=== PATIENT | female | born 1965 | race Caucasian/White ===

== ENCOUNTER 2017-02-27 18:33 | Emergency (ER) | payer MEDICARE, OTHER ==
[2017-02-27 18:49] VITALS: BP 141/99
[2017-02-27] MEDS ORDERED: Sodium Chloride 0.9% 10 ML Syringe FLUSH PRN (19:39)
[2017-02-27] MEDS ORDERED: fentaNYL 100 MCG/2 ML SDV IVPUSH ONE (19:39)
[2017-02-27] MEDS ORDERED: Sodium Chloride 0.9% 1,000 ML IV ONE (19:39)
--- NOTE | 2017-02-27 19:51 | EDM.PDOC ---
ED HPI GENERAL MEDICAL PROBLEM - General Chief Complaint: Respiratory Problem Stated Complaint: SOB Time Seen by Provider: 02/27/17 19:27 Source of Information: Reports: Patient History Limitations: Reports: No Limitations - History of Present Illness INITIAL COMMENTS - FREE TEXT/NARRATIVE: Patient is a 51-year-old female who presents to the ED complaining of increased weakness, shortness of breath, poor appetite, mild chest tightness, nausea, and increasing pain to her hips, tailbone, neck, and knees. Patient states this started 3 days ago with increasing difficulty to walk today. States she is normally on a fentanyl patch but ran out of this prescription on February 25. Prescription cant be filled until March 03, 2017. She has been taking hydrocodone with minimal relief. She did fall on her right hip yesterday but denies any injuries or worsening pain. She's been under long-term chronic pain therapy for quite some time. States with increasing pain her appetite has been poor. Her last meal was yesterday. She's had no diarrhea or vomiting. Chest tightness is described as a squeezing sensation, localized, with no known provocation. She has no pain with admission to the ED. She did get mildly dizzy with chest tightness. She's had symptoms in the past with stopping the fentanyl patch. She denies any syncopal episode, diaphoresis, numbness or tingling, pain with urination, abdominal pain, increased swelling to her lower extremities, calf pain, or any additional symptoms. Hip Pain Score (Numeric/FACES): 8 - Related Data Allergies Allergy/AdvReac Type Severity Reaction Status Date / Time No Known Allergies Allergy Verified 02/27/17 18:48 Home Meds: Home Meds Calcium Citrate 1 tab PO TID 02/27/17 [History] Ergocalciferol (Vitamin D2) [Vitamin D2] 1 tab PO WEEKLY 02/27/17 [History] Folic Acid 1 tab PO DAILY 02/27/17 [History] Gabapentin [Neurontin] 300 mg PO QID 02/27/17 [History] Hydrocodone/Acetaminophen [Hydrocodon-Acetaminoph 7.5-325] 1 tab PO TID PRN 09/14 [History] Levothyroxine Sodium [Levoxyl] 50 mcg PO DAILY 02/27/17 [History] Lutein 1 tab PO BID 02/27/17 [History] Methotrexate 4 tab PO WEEKLY 02/27/17 [History] Multivitamin [Multivitamins] 1 tab PO DAILY 02/27/17 [History] Naloxegol Oxalate [Movantik] 25 mg PO DAILY 02/27/17 [History] Omeprazole Magnesium [Prilosec Otc] 20 mg PO DAILY 02/27/17 [History] Ondansetron [Zofran] 4 mg PO QID PRN 02/27/17 [History] fentaNYL [Fentanyl] 1 patch TOP Q72H #2 patch.td72 02/27/17 [Rx] hydrOXYzine HCl [Atarax] 25 mg PO TID 02/27/17 [History] traZODone HCl [Trazodone HCl] 100 mg PO BEDTIME PRN 02/27/17 [History] Past Medical History Gastrointestinal History: Reports: GERD Musculoskeletal History: Reports: Osteoarthritis, RA, Other (See Below) Other Musculoskeletal History: osteopenia Psychiatric History: Reports: Depression Endocrine/Metabolic History: Reports: Hypothyroidism, Vitamin D Deficiency Immunologic History: Reports: Immunosuppression Dermatologic History: Reports: Other (See Below) Other Dermatologic History: psriatic arthropathy Social & Family History - Tobacco Use Smoking Status *Q: Current Every Day Smoker Years of Tobacco use: 33 Packs/Tins Daily: 0.5 - Caffeine Use Caffeine Use: Reports: Coffee - Recreational Drug Use Recreational Drug Use: No ED ROS GENERAL - Review of Systems Review Of Systems: See Below Constitutional: Reports: Chills, Malaise, Weakness, Fatigue, Decreased Appetite. Denies: Fever HEENT: Reports: No Symptoms Respiratory: Reports: Shortness of Breath, Pleuritic Chest Pain. Denies: Cough , Sputum Cardiovascular: Reports: Chest Pain, Dyspnea on Exertion. Denies: Blood Pressure Problem, Lightheadedness, Palpitations, Syncope GI/Abdominal: Denies: Abdominal Pain, Constipation, Diarrhea, Nausea, Vomiting : Denies: Dysuria Musculoskeletal: Reports: Neck Pain (Chronic), Other (Chronic pain to the neck, hips bilaterally, tailbone, and knees bilaterally) Skin: Reports: No Symptoms Neurological: Reports: Dizziness, Weakness. Denies: Headache, Numbness, Tingling, Difficulty Walking ED EXAM, GENERAL - Physical Exam Exam: See Below Exam Limited By: No Limitations General Appearance: Alert, WD/WN, Moderate Distress Eye Exam: Bilateral Eye: PERRL Ears: Hearing Grossly Normal Nose: Normal Inspection Throat/Mouth: Normal Voice, No Airway Compromise, Other (Dry oral mucosa) Neck: Normal Inspection, Supple, Non-Tender, Full Range of Motion. No: Lymphadenopathy (L), Lymphadenopathy (R) Respiratory/Chest: No Respiratory Distress, Lungs Clear, Normal Breath Sounds, No Accessory Muscle Use, Chest Non-Tender Cardiovascular: Normal Peripheral Pulses, Regular Rate, Rhythm, No Murmur Peripheral Pulses: 2+: Radial (L) GI/Abdominal: Normal Bowel Sounds, Soft, Non-Tender, No Organomegaly, No Distention Back Exam: Normal Inspection, Full Range of Motion. No: Paraspinal Tenderness, Vertebral Tenderness Extremities: Normal Inspection, No Pedal Edema, Normal Capillary Refill, Limited Range of Motion (2nd pain to hips bilaterally, tailbone, and knees. ) Neurological: Alert, Oriented, CN II-XII Intact, No Motor/Sensory Deficits Psychiatric: Normal Affect, Tearful Skin Exam: Warm, Dry, Intact, Normal Color (Secondary to pain), No Rash Course - Vital Signs Last Recorded V/S: Last Vital Signs Temp 98.2 F 02/27/17 18:42 Pulse 78 02/27/17 18:42 Resp 18 02/27/17 18:42 BP 141/99 H 02/27/17 18:42 Pulse Ox 97 02/27/17 18:42 - Orders/Labs/Meds Labs: Laboratory Tests 02/27/17 02/27/17 02/27/17 Range/Units 19:45 19:45 19:45 WBC 10.59 H (3.98-10.04) K/mm3 RBC 5.31 H (3.98-5.22) M/mm3 Hgb 14.9 (11.2-15.7) gm/L Hct 44.3 (34.1-44.9) % MCV 83.4 (79.4-94.8) fl MCH 28.1 (25.6-32.2) pg MCHC 33.6 (32.2-35.5) g/dl RDW Std Deviation 41.8 (36.4-46.3) fL Plt Count 284 (182-369) K/mm3 MPV 9.3 L (9.4-12.3) fl Neut % (Auto) 65.8 (34.0-71.1) % Lymph % (Auto) 28.2 (19.3-51.7) % Mcculloch % (Auto) 4.8 (4.7-12.5) % Eos % (Auto) 0.7 (0.7-5.8) Baso % (Auto) 0.5 (0.1-1.2) % Neut # (Auto) 6.97 H (1.56-6.13) K/mm3 Lymph # (Auto) 2.99 (1.18-3.74) K/mm3 Mcculloch # (Auto) 0.51 H (0.24-0.36) K/mm3 Eos # (Auto) 0.07 (0.04-0.36) K/mm3 Baso # (Auto) 0.05 (0.01-0.08) K/mm3 PT 10.7 (8.0-13.0) SECONDS INR 0.98 APTT (22-36) SECONDS D-Dimer, Quantitative (0.19-0.59) mg/L Sodium 140 (136-145) mEq/L Potassium 3.7 (3.5-5.1) mEq/L Chloride 103 (98-107) mEq/L Carbon Dioxide 28 (21-32) mEq/L Anion Gap 12.7 (5-15) BUN 14 (7-18) mg/dL Creatinine 0.9 (0.55-1.02) mg/dL Est Cr Clr Drug Dosing 58.25 mL/min Estimated GFR (MDRD) > 60 (>60) mL/min BUN/Creatinine Ratio 15.6 (14-18) Glucose 94 (74-106) mg/dL Calcium 9.5 (8.5-10.1) mg/dL Total Bilirubin 0.6 (0.2-1.0) mg/dL AST 14 L (15-37) U/L ALT 15 (14-59) U/L Alkaline Phosphatase 115 (46-116) U/L Troponin I < 0.017 (0.00-0.056) ng/mL C-Reactive Protein < 0.2 (<1.0) mg/dL Total Protein 7.9 (6.4-8.2) g/dl Albumin 4.0 (3.4-5.0) g/dl Globulin 3.9 gm/dL Albumin/Globulin Ratio 1.0 (1-2) TSH 3rd Generation 2.369 (0.358-3.74) uIU/mL Urine Color (Yellow) Urine Appearance (Clear) Urine pH (5.0-8.0) Ur Specific Gap (1.005-1.030) Urine Protein (Negative) Urine Glucose (UA) (Negative) Urine Ketones (Negative) Urine Occult Blood (Negative) Urine Nitrite (Negative) Urine Bilirubin (Negative) Urine Urobilinogen (0.2-1.0) Ur Leukocyte Esterase (Negative) Urine RBC (0-5) /hpf Urine WBC (0-5) /hpf Ur Epithelial Cells (0-5) /hpf Urine Bacteria (FEW) /hpf Urine Mucus (FEW) /hpf Urine Opiates Screen (NEGATIVE) Ur Buprenorphine Scrn (NEGATIVE) Ur Oxycodone Screen (NEGATIVE) Urine Methadone Screen (NEGATIVE) Ur Propoxyphene Screen (NEGATIVE) Ur Barbiturates Screen (NEGATIVE) Ur Tricyclics Screen (NEGATIVE) Ur Phencyclidine Scrn (NEGATIVE) Ur Amphetamine Screen (NEGATIVE) U Methamphetamines Scrn (NEGATIVE) U Benzodiazepines Scrn (NEGATIVE) U Cocaine Metab Screen (NEGATIVE) U Marijuana (THC) Screen (NEGATIVE) Ethyl Alcohol 0.00 (0.00) gm% 02/27/17 02/27/17 02/27/17 Range/Units 19:45 21:01 21:01 WBC (3.98-10.04) K/mm3 RBC (3.98-5.22) M/mm3 Hgb (11.2-15.7) gm/L Hct (34.1-44.9) % MCV (79.4-94.8) fl MCH (25.6-32.2) pg MCHC (32.2-35.5) g/dl RDW Std Deviation (36.4-46.3) fL Plt Count (182-369) K/mm3 MPV (9.4-12.3) fl Neut % (Auto) (34.0-71.1) % Lymph % (Auto) (19.3-51.7) % Mcculloch % (Auto) (4.7-12.5) % Eos % (Auto) (0.7-5.8) Baso % (Auto) (0.1-1.2) % Neut # (Auto) (1.56-6.13) K/mm3 Lymph # (Auto) (1.18-3.74) K/mm3 Mcculloch # (Auto) (0.24-0.36) K/mm3 Eos # (Auto) (0.04-0.36) K/mm3 Baso # (Auto) (0.01-0.08) K/mm3 PT (8.0-13.0) SECONDS INR APTT 28 (22-36) SECONDS D-Dimer, Quantitative < 0.19 L (0.19-0.59) mg/L Sodium (136-145) mEq/L Potassium (3.5-5.1) mEq/L Chloride (98-107) mEq/L Carbon Dioxide (21-32) mEq/L Anion Gap (5-15) BUN (7-18) mg/dL Creatinine (0.55-1.02) mg/dL Est Cr Clr Drug Dosing mL/min Estimated GFR (MDRD) (>60) mL/min BUN/Creatinine Ratio (14-18) Glucose (74-106) mg/dL Calcium (8.5-10.1) mg/dL Total Bilirubin (0.2-1.0) mg/dL AST (15-37) U/L ALT (14-59) U/L Alkaline Phosphatase (46-116) U/L Troponin I (0.00-0.056) ng/mL C-Reactive Protein (<1.0) mg/dL Total Protein (6.4-8.2) g/dl Albumin (3.4-5.0) g/dl Globulin gm/dL Albumin/Globulin Ratio (1-2) TSH 3rd Generation (0.358-3.74) uIU/mL Urine Color Yellow (Yellow) Urine Appearance Clear (Clear) Urine pH 6.5 (5.0-8.0) Ur Specific Gap 1.020 (1.005-1.030) Urine Protein Negative (Negative) Urine Glucose (UA) Negative (Negative) Urine Ketones Negative (Negative) Urine Occult Blood 1+ H (Negative) Urine Nitrite Negative (Negative) Urine Bilirubin Negative (Negative) Urine Urobilinogen 1.0 (0.2-1.0) Ur Leukocyte Esterase Trace H (Negative) Urine RBC 5-10 H (0-5) /hpf Urine WBC 5-10 H (0-5) /hpf Ur Epithelial Cells 10-20 H (0-5) /hpf Urine Bacteria Rare (FEW) /hpf Urine Mucus Not seen (FEW) /hpf Urine Opiates Screen Presumptive positive H (NEGATIVE) Ur Buprenorphine Scrn Negative (NEGATIVE) Ur Oxycodone Screen Negative (NEGATIVE) Urine Methadone Screen Negative (NEGATIVE) Ur Propoxyphene Screen Negative (NEGATIVE) Ur Barbiturates Screen Negative (NEGATIVE) Ur Tricyclics Screen Presumptive positive H (NEGATIVE) Ur Phencyclidine Scrn Negative (NEGATIVE) Ur Amphetamine Screen Negative (NEGATIVE) U Methamphetamines Scrn Negative (NEGATIVE) U Benzodiazepines Scrn Negative (NEGATIVE) U Cocaine Metab Screen Negative (NEGATIVE) U Marijuana (THC) Screen Negative (NEGATIVE) Ethyl Alcohol (0.00) gm% Meds: Medications Discontinued Medications Generic Name Dose Route Start Last Admin Trade Name Freq PRN Reason Stop Dose Admin Ceftriaxone Sodium 1 gm/ 0 gm 02/27/17 22:15 Lidocaine HCl 2.1 ml IM Q24H ANDIE Fentanyl 75 mcg 02/27/17 19:39 02/27/17 19:50 Sublimaze IVPUSH 02/27/17 19:40 75 mcg ONETIME ONE Administration Fentanyl 75 mcg 02/27/17 22:09 02/27/17 22:23 Duragesic TRDERM 02/27/17 22:10 75 mcg ONETIME ONE Administration Sodium Chloride 1,000 mls @ 500 mls/hr 02/27/17 19:39 02/27/17 19:50 Normal Saline IV 02/27/17 21:38 500 mls/hr ONETIME ONE Administration Nitrofurantoin Macrocrystals 100 mg 02/27/17 22:02 Macrobid PO 02/27/17 22:03 ONETIME ONE Sodium Chloride 10 ml 02/27/17 19:39 02/27/17 19:45 Saline Flush FLUSH 10 ml ASDIRECTED PRN Administration Keep Vein Open - Re-Assessments/Exams Free Text/Narrative Re-Assessment/Exam: IV will be established with normal saline 500 mls/hr, Zofran 4 mg IVP, fentanyl 75 mcqs IVP. Initial labs and studies include CBC, chem 14, troponin, CRP, EtOH , PTT/INR, PTT, urine drug tox, TSH, UA, 2 view chest x-ray, and d-dimer. EKG revealed: Sinus rhythm at a rate of [address] changes noted. CXR revealed: No acute abnormalities noted. Reviewed with Dr. Sanz. 02/27/17 20:41Labs reviewed: White blood cell count 10.59, hemoglobin is 14.9, neutrophil percentage is 65.8, neutrophil number is 6.97, d-dimer less than 0.19 , sodium 140, potassium 3.7, creatinine 0.9, troponin less than 0.017, CRP less than 0.2, TSH is 2.369, EtOH 0. UA 1+ occult blood, leukocyte esterase trace, urine rbc's 5-10, urine wbc's 5-10, urine epithelial cells 10-20, urine bacteria rare. Findings concerning for contamination. Ordered urine culture. Urine toxicology positive for opiates and tricyclics. Reassessment, patient's pain has drastically improved with the fentanyl. I believe patient is going through withdrawals from fentanyl since she ran out of fentanyl patches. Patient normally takes 75 g/hour patch changed out every 72 hours. Next prescription cannot be filled until March [id number] Patient resting comfortably in bed. UA did reveal concerns for contamination. Will culture urine. Patient is feeling much better but pain is coming back. Ordered fentanyl patch 75mcq/hr to be placed. Will discharge home with instructions as documented. Departure - Departure Time of Disposition: 22:12 Disposition: Home, Self-Care 01 Condition: Good Clinical Impression: Fentanyl dependence - Discharge Information Prescriptions: fentaNYL [Fentanyl] 1 patch TOP Q72H #2 patch.td72 Instructions: Opioid Withdrawal Referrals: Stephania Kruger [employer] [Primary Care Provider] - Forms: ED Department Discharge Additional Instructions: As discuss provided a prescription for fentanyl patch please take as prescribed for chronic pain. Push the fluids ensure adequate diet and rest. Get up and move. See your PCP this coming week for reevaluation. I believe symptoms were related to fentanyl withdrawal and/or depression. Please return to the ED for any new or worsening symptoms. Urine culture has been obtained you be notified if antibiotics are required.
[2017-02-27] MEDS ORDERED: Nitrofurantoin Monohydrate/Macrocrystalline 100 MG Cap PO ONE (22:02)
[2017-02-27] MEDS ORDERED: fentaNYL 75 MCG/HR Transdermal Patch TRDERM ONE (22:09)
[2017-02-27] MEDS ORDERED: cefTRIAXone 1 GM, Lidocaine 1% 2.1 ML IM SCH ×2 (22:15)
--- NOTE | 2017-02-28 07:13 | CR ---
Chest: Two views of the chest were obtained. Comparison: No previous chest x-ray. Lungs are hyperinflated compatible with emphysematous change. Heart size and mediastinum are normal. Lungs are clear. Bony structures are within normal limits for the patient's age. Previous cholecystectomy is noted. Impression: 1. Emphysematous change. Nothing acute is appreciated on two-view chest x-ray. Diagnostic code #2
== END 2017-02-27 22:44 | disposition home or self-care (01) ==
LOC: JD.ED 18:33
DX: F11.20 Opioid dependence, uncomplicated (principal); F17.210 Nicotine dependence, cigarettes, uncomplicated; K21.9 Gastro-esophageal reflux disease without esophagitis; M19.90 Unspecified osteoarthritis, unspecified site; F32.9 Major depressive disorder, single episode, unspecified; E03.9 Hypothyroidism, unspecified; Z79.899 Other long term (current) drug therapy
CPT/HCPCS: 36415; 71020; 80053; 80306; 81001; 84443; 84484; 85025; 85379; 85610; 85730; 86140; 96361; 96374; 99285; A9270; G0480; J3010; J7040; J7050; 99284

== ENCOUNTER 2019-03-29 18:06 | Emergency (ER) | payer MEDICARE, OTHER ==
[2019-03-29 18:19] VITALS: BP 173/111
[2019-03-29] MEDS ORDERED: HYDROmorphone 0.5 MG/0.5 ML Syringe IVPUSH ONE (19:20)
[2019-03-29] MEDS ORDERED: Sodium Chloride 0.9% 1,000 ML IV ONE (19:20)
[2019-03-29] MEDS ORDERED: Sodium Chloride 0.9% 10 ML Syringe FLUSH PRN (19:20)
[2019-03-29] MEDS ORDERED: Acetaminophen/HYDROcodone 325-5 MG Tab PO ONE (19:22)
--- NOTE | 2019-03-29 19:22 | EDM.PDOCBH ---
ED HPI GENERAL MEDICAL PROBLEM - General Chief Complaint: Headache Stated Complaint: HIGH BLOOD PRESSURE Time Seen by Provider: 03/29/19 18:48 Source of Information: Reports: Patient History Limitations: Reports: No Limitations - History of Present Illness INITIAL COMMENTS - FREE TEXT/NARRATIVE: Patient is a 53-year-old female who presents to the ED complaining of bitemporal tension-like headache. Patient states she's been experiencing headaches as such for off and on for the past 8 days. The headache has grown increasingly worse over the past few days since not having her fentanyl patch and/or hydrocodone. Patient states she has a history of psoriatic arthritis and osteoarthritis with severe pain has been under the management of a [facility] [place]. She normally has a 75 g per hour patch of fentanyl and normally takes hydrocodone with acetaminophen 10- 325. She and her family were camping in [facility] and when they returned the narcotics were gone. She suspects they were stolen. No local law enforcement was contacted. She did attempt to get a appt with her PCP Dr. Fowler but he was gone this week. She has no history of hypertension. She is taking no recreational drugs and/or uses no alcohol. She complains of increased anxiety, mild nausea, and generalized pain. Pain has been consistent but more worse as a recent with no narcotics. She has been taking gabapentin 300 mg 4 times a day. She states he had left over medications at home and has been taking with no significant relief. She also complains of hair standing up on her arms. Patient' s also had some intermittent episodes of fevers and chills with a slight cough described as nonproductive with some chest congestion. She does complain of a runny nose and postnasal drip with no sore throat. Headache Pain Score (Numeric/FACES): 6 - Related Data Allergies Allergy/AdvReac Type Severity Reaction Status Date / Time No Known Allergies Allergy Verified 03/29/19 18:14 Home Meds: Home Meds Calcium Citrate 1 tab PO TID 02/27/17 [History] Ergocalciferol (Vitamin D2) [Vitamin D2] 1 tab PO WEEKLY 02/27/17 [History] Folic Acid 1 tab PO DAILY 02/27/17 [History] Gabapentin [Neurontin] 300 mg PO QID 02/27/17 [History] Levothyroxine Sodium [Levoxyl] 50 mcg PO DAILY 02/27/17 [History] Methotrexate 4 tab PO WEEKLY 02/27/17 [History] Multivitamin [Multivitamins] 1 tab PO DAILY 02/27/17 [History] Ondansetron [Zofran] 4 mg PO QID PRN 02/27/17 [History] traZODone HCl [Trazodone HCl] 100 mg PO BEDTIME PRN 02/27/17 [History] Hydrocodone/Acetaminophen [Hydrocodon-Acetaminoph 7.5-325] 1 tab PO TID PRN #21 tablet 03/29/19 [Rx] Hydrocodone/Acetaminophen [Hydrocodon-Acetaminophn 10-325] 1 tab PO BID PRN 08/16 [History] fentaNYL [Fentanyl] 1 patch TOP Q72H #2 patch.td72 03/29/19 [Rx] Past Medical History Gastrointestinal History: Reports: GERD Musculoskeletal History: Reports: Osteoarthritis, RA, Other (See Below) Other Musculoskeletal History: osteopenia Psychiatric History: Reports: Depression Endocrine/Metabolic History: Reports: Hypothyroidism, Vitamin D Deficiency Immunologic History: Reports: Immunosuppression Dermatologic History: Reports: Other (See Below) Other Dermatologic History: psriatic arthropathy Social & Family History - Tobacco Use Smoking Status *Q: Current Every Day Smoker Years of Tobacco use: 32 Packs/Tins Daily: 0.5 - Caffeine Use Caffeine Use: Reports: Coffee - Recreational Drug Use Recreational Drug Use: No ED ROS GENERAL - Review of Systems Review Of Systems: ROS reveals no pertinent complaints other than HPI. ED EXAM, BEHAVIORAL HEALTH - Physical Exam Exam: See Below Exam Limited By: No Limitations General Appearance: Alert, WD/WN, Anxious Eye Exam: Bilateral Eye: Normal Inspection, Nystagmus (none noted), PERRL Ears: Hearing Grossly Normal Nose: Normal Inspection Throat/Mouth: Normal Inspection, Normal Oropharynx, Normal Voice, No Airway Compromise Head: Atraumatic, Normocephalic Neck: Normal Inspection, Supple, Non-Tender, Full Range of Motion. No: Lymphadenopathy (L), Lymphadenopathy (R) Respiratory/Chest: No Respiratory Distress, Lungs Clear, Normal Breath Sounds, No Accessory Muscle Use Cardiovascular: Normal Peripheral Pulses, No Murmur, Tachycardia GI/Abdominal: Normal Bowel Sounds, Soft, Non-Tender, No Organomegaly, No Distention Back Exam: Normal Inspection Extremities: Normal Inspection, Normal Range of Motion, Non-Tender, No Pedal Edema Neurological: Alert, Normal Mood/Affect, CN II-XII Intact, Normal Cognition, No Motor/Sensory Deficits, Oriented x 3 Psychiatric: Alert, Normal Cognition, Oriented, Restless Skin Exam: Warm, Dry, Intact, Normal color, No rash COURSE, BEHAVIORAL HEALTH COMP - Course Vital Signs: Last Vital Signs Temp 99.4 F 03/29/19 18:14 Pulse 101 H 03/29/19 18:14 Resp BP 173/111 H 03/29/19 18:14 Pulse Ox 96 03/29/19 18:14 Orders, Labs, Meds: Active Orders 24 hr Category Date Time Status EKG Documentation Completion [RC] STAT Care 03/29/19 19:19 Active Peripheral IV Care [RC] . DIRECTED Care 03/29/19 19:21 Active Chest 1V Frontal [CR] Stat Exams 03/29/19 19:19 Taken Peripheral IV Insertion Adult [OM.PC] Routine Oth 03/29/19 19:20 Ordered Laboratory Tests 03/29/19 03/29/19 03/29/19 Range/Units 19:30 19:30 19:38 WBC 11.62 H (3.98-10.04) K/mm3 RBC 5.47 H (3.98-5.22) M/mm3 Hgb 15.3 (11.2-15.7) gm/L Hct 46.7 H (34.1-44.9) % MCV 85.4 (79.4-94.8) fl MCH 28.0 (25.6-32.2) pg MCHC 32.8 (32.2-35.5) g/dl RDW Std Deviation 42.1 (36.4-46.3) fL Plt Count 257 (182-369) K/mm3 MPV 9.8 (9.4-12.3) fl Neutrophils % (Manual) 68 H (40-60) % Band Neutrophils % 0 (0-10) % Lymphocytes % (Manual) 23 (20-40) % Atypical Lymphs % 0 % Monocytes % (Manual) 9 (2-10) % Eosinophils % (Manual) 0 L (0.7-5.8) % Basophils % (Manual) 0 L (0.1-1.2) Platelet Estimate Adequate RBC Morph Comment Normal Sodium 141 (136-145) mEq/L Potassium 3.5 (3.5-5.1) mEq/L Chloride 102 (98-107) mEq/L Carbon Dioxide 26 (21-32) mEq/L Anion Gap 16.5 H (5-15) BUN 9 (7-18) mg/dL Creatinine 0.6 (0.55-1.02) mg/dL Est Cr Clr Drug Dosing 77.65 mL/min Estimated GFR (MDRD) > 60 (>60) mL/min BUN/Creatinine Ratio 15.0 (14-18) Glucose 93 (74-106) mg/dL Calcium 10.1 (8.5-10.1) mg/dL Total Bilirubin 0.4 (0.2-1.0) mg/dL AST 18 (15-37) U/L ALT 17 (14-59) U/L Alkaline Phosphatase 96 (46-116) U/L Total Protein 8.3 H (6.4-8.2) g/dl Albumin 4.0 (3.4-5.0) g/dl Globulin 4.3 gm/dL Albumin/Globulin Ratio 0.9 L (1-2) TSH 3rd Generation 0.372 (0.358-3.74) uIU/mL Urine Color Yellow (Yellow) Urine Appearance Clear (Clear) Urine pH 7.5 (5.0-8.0) Ur Specific [place] 1.015 (1.005-1.030) Urine Protein Negative (Negative) Urine Glucose (UA) Negative (Negative) Urine Ketones Negative (Negative) Urine Occult Blood Trace-intact H (Negative) Urine Nitrite Negative (Negative) Urine Bilirubin Negative (Negative) Urine Urobilinogen 1.0 (0.2-1.0) Ur Leukocyte Esterase Negative (Negative) Urine RBC 0-5 (0-5) /hpf Urine WBC Not seen (0-5) /hpf Ur Squamous Epith Cells 0-5 (0-5) /hpf Urine Bacteria Few (FEW) /hpf Urine Mucus Not seen (FEW) /hpf Urine Opiates Screen (DMSLFN=024) Ur Buprenorphine Scrn (CUTOFF=10) Ur Oxycodone Screen (PSD4AK=022) Urine Methadone Screen (JJGSES=365) Ur Propoxyphene Screen (KNZXGU=861) Ur Barbiturates Screen (IMVOHQ=252) Ur Tricyclics Screen (YTUJPK=786) Ur Phencyclidine Scrn (CUTOFF=25) Ur Amphetamine Screen (GTLGED=465) U Methamphetamines Scrn (WINWGO=326) U Benzodiazepines Scrn (ENPPOR=484) U Cocaine Metab Screen (NPJTBN=275) U Marijuana (THC) Screen (CUTOFF=50) 03/29/19 Range/Units 19:44 WBC (3.98-10.04) K/mm3 RBC (3.98-5.22) M/mm3 Hgb (11.2-15.7) gm/L Hct (34.1-44.9) % MCV (79.4-94.8) fl MCH (25.6-32.2) pg MCHC (32.2-35.5) g/dl RDW Std Deviation (36.4-46.3) fL Plt Count (182-369) K/mm3 MPV (9.4-12.3) fl Neutrophils % (Manual) (40-60) % Band Neutrophils % (0-10) % Lymphocytes % (Manual) (20-40) % Atypical Lymphs % % Monocytes % (Manual) (2-10) % Eosinophils % (Manual) (0.7-5.8) % Basophils % (Manual) (0.1-1.2) Platelet Estimate RBC Morph Comment Sodium (136-145) mEq/L Potassium (3.5-5.1) mEq/L Chloride (98-107) mEq/L Carbon Dioxide (21-32) mEq/L Anion Gap (5-15) BUN (7-18) mg/dL Creatinine (0.55-1.02) mg/dL Est Cr Clr Drug Dosing mL/min Estimated GFR (MDRD) (>60) mL/min BUN/Creatinine Ratio (14-18) Glucose (74-106) mg/dL Calcium (8.5-10.1) mg/dL Total Bilirubin (0.2-1.0) mg/dL AST (15-37) U/L ALT (14-59) U/L Alkaline Phosphatase (46-116) U/L Total Protein (6.4-8.2) g/dl Albumin (3.4-5.0) g/dl Globulin gm/dL Albumin/Globulin Ratio (1-2) TSH 3rd Generation (0.358-3.74) uIU/mL Urine Color (Yellow) Urine Appearance (Clear) Urine pH (5.0-8.0) Ur Specific [place] (1.005-1.030) Urine Protein (Negative) Urine Glucose (UA) (Negative) Urine Ketones (Negative) Urine Occult Blood (Negative) Urine Nitrite (Negative) Urine Bilirubin (Negative) Urine Urobilinogen (0.2-1.0) Ur Leukocyte Esterase (Negative) Urine RBC (0-5) /hpf Urine WBC (0-5) /hpf Ur Squamous Epith Cells (0-5) /hpf Urine Bacteria (FEW) /hpf Urine Mucus (FEW) /hpf Urine Opiates Screen Negative (UFUCOA=567) Ur Buprenorphine Scrn Negative (CUTOFF=10) Ur Oxycodone Screen Negative (BXL0DO=776) Urine Methadone Screen Negative (MKBFSA=522) Ur Propoxyphene Screen Negative (OGBIMF=469) Ur Barbiturates Screen Negative (KIVAME=494) Ur Tricyclics Screen Negative (NFIPRU=818) Ur Phencyclidine Scrn Negative (CUTOFF=25) Ur Amphetamine Screen Negative (OENRBW=602) U Methamphetamines Scrn Negative (ZWRLLR=987) U Benzodiazepines Scrn Negative (WKTXTU=027) U Cocaine Metab Screen Negative (UWPBOG=918) U Marijuana (THC) Screen Presumptive positive H (CUTOFF=50) Medications Discontinued Medications Generic Name Dose Route Start Last Admin Trade Name Kwanq PRN Reason Stop Dose Admin Hydrocodone Bitart/Acetaminophen 1 tab 03/29/19 19:22 03/29/19 19:37 [place] 325-5 Mg PO 03/29/19 19:23 1 tab ONETIME ONE Administration Fentanyl 75 mcg 03/29/19 20:13 03/29/19 20:27 Duragesic TRDERM 03/29/19 20:14 75 mcg Q72H ONE Administration Hydromorphone HCl 0.5 mg 03/29/19 19:20 03/29/19 19:38 Dilaudid IVPUSH 03/29/19 19:21 0.5 mg ONETIME ONE Administration Sodium Chloride 1,000 mls @ 125 mls/hr 03/29/19 19:20 03/29/19 19:36 Normal Saline IV 03/30/19 03:19 125 mls/hr ONETIME ONE Administration Sodium Chloride 10 ml 03/29/19 19:20 03/29/19 19:41 Saline Flush FLUSH 10 ml ASDIRECTED PRN Administration Keep Vein Open Re-Assessment/Re-Exam: IV established with normal saline, Dilaudid 0.5 mg IVP. I also ordered [place] one tab by mouth. Initial lab studies include: CBC,chem 14, urine drug screen, TSH, and UA. Chest x-ray one view and EKG will be obtained. 1935 Reviewed the [place] drug monitoring website. Patient received fentanyl 75 g/hour patch #10, hydrocodone 10-325 #14, and hydrocodone 10-325 # 42 prescriptions March 13, 2019. This was enough for 30 days. All narcotics have been prescribed by Dr. Mao. EKG: Revealed sinus rhythm rate of [address] changes noted. X-ray revealed hyperinflated with no acute findings. Reviewed with Dr. Lewis. 1999 reassessment, patient is feeling much better after the above medications. I have elected to order fentanyl patch. Labs are pending. Labs reviewed: WBC 11.62, hemoglobin 15.3, platelet count 257, sodium, potassium , CO2 WITHIN normal limits. Creatinine 0.6. AG is slightly elevated at 16.5. TSH 0.372. UA revealed trace occult blood. Urine drug tox positive for marijuana. 2039 Reassessment: Patients BP is 133/89, HR 96. She is feeling much better after receiving the above medications. Symptoms continue to improve. Patient is ready be discharged home. Return precautions were discussed with the patient. She will follow-up with her pain specialist this week or PCP whoever she can get a appointment with first for further pain management. She had no further questions or concerns. She agreed with plan. Discharge instructions as documented. Departure - Departure Time of Disposition: 20:26 Disposition: Home, Self-Care 01 Condition: Good Clinical Impression: Opioid use with withdrawal Hematuria Qualifiers: Hematuria type: unspecified type Qualified Code(s): R31.9 - Hematuria, unspecified Opioid dependence Qualifiers: Substance use status: in withdrawal Qualified Code(s): F11.23 - Opioid dependence with withdrawal - Discharge Information Prescriptions: fentaNYL [Fentanyl] 1 patch TOP Q72H #2 patch.td72 Hydrocodone/Acetaminophen [Hydrocodon-Acetaminoph 7.5-325] 1 tab PO TID PRN #21 tablet PRN Reason: Pain Instructions: Chemical Dependency, Opioid Pain Medicine Information, Pain Medicine Instructions, [id number], Opioid Withdrawal Referrals: Girma Hill MD [Primary Care Provider] - Forms: ED Department Discharge Additional Instructions: You're provided prescription for fentanyl and [place] as previously prescribed, short course. Please call and make an appointment with PCP or pain specialist this week for reevaluation and further pain management. Push the fluids. Refrain from driving since receiving a sedative medications. Do not drive while taking the fentanyl and [place]. In addition small amount of blood was found within her urine. Please follow up with PCP to ensure this resolves. Return back to the ED if you develop any new or worsening symptoms. - My Orders Last 24 Hours: My Active Orders 03/29/19 19:19 EKG Documentation Completion [RC] STAT Chest 1V Frontal [CR] Stat 03/29/19 19:20 Peripheral IV Insertion Adult [OM.PC] Routine 03/29/19 19:21 Peripheral IV Care [RC] . DIRECTED - Assessment/Plan Last 24 Hours: My Active Orders 03/29/19 19:19 EKG Documentation Completion [RC] STAT Chest 1V Frontal [CR] Stat 03/29/19 19:20 Peripheral IV Insertion Adult [OM.PC] Routine 03/29/19 19:21 Peripheral IV Care [RC] . DIRECTED
[2019-03-29] MEDS ORDERED: fentaNYL 75 MCG/HR Transdermal Patch TRDERM ONE (20:13)
--- NOTE | 2019-03-30 09:40 | CR ---
Chest: Portable view of the chest was obtained. Comparison: Chest x-ray of 02/27/17. Heart size and mediastinum are normal. Lungs are clear but hyperinflated. Bony structures are grossly intact. Impression: 1. Emphysematous change. Nothing acute is seen on portable chest x-ray. Diagnostic code #2
== END 2019-03-29 21:01 | disposition home or self-care (01) ==
LOC: JD.ED 18:06
DX: F11.23 Opioid dependence with withdrawal (principal); R31.9 Hematuria, unspecified; E03.9 Hypothyroidism, unspecified; F32.9 Major depressive disorder, single episode, unspecified; F17.210 Nicotine dependence, cigarettes, uncomplicated; Z79.899 Other long term (current) drug therapy
CPT/HCPCS: 36415; 71045; 80053; 80306; 81001; 84443; 85007; 85027; 93005; 96361; 96374; 99284; A9270; J1170; J7040

== ENCOUNTER 2019-04-02 13:33 | Emergency (ER) | payer MEDICARE, OTHER ==
--- NOTE | 2019-04-02 14:33 | EDM.PDOC ---
ED HPI GENERAL MEDICAL PROBLEM - General Chief Complaint: General Stated Complaint: PAIN Time Seen by Provider: 04/02/19 14:33 - History of Present Illness INITIAL COMMENTS - FREE TEXT/NARRATIVE: 52-year-old female presents emergency room hoping to get pain medication. The patient was seen here yesterday had a fentanyl patch applied and was given a prescription for a few more fentanyl patches and some hydrocodone as her pain doctor is not available fill these. However the pharmacy would not fill onset it was too soon confiscated the prescriptions for the patient according to the patient. Patient has chronic back pain and degenerative pain. Upper Neck Pain Score (Numeric/FACES): 8 Left Lower Back Pain Score (Numeric/FACES): 8 - Related Data Allergies Allergy/AdvReac Type Severity Reaction Status Date / Time No Known Allergies Allergy Verified 04/02/19 14:35 Home Meds: Home Meds Calcium Citrate 200 mg PO TID 02/27/17 [History] Ergocalciferol (Vitamin D2) [Vitamin D2] 1 tab PO WEEKLY 02/27/17 [History] Folic Acid 1 tab PO DAILY 02/27/17 [History] Gabapentin [Neurontin] 300 mg PO QID 02/27/17 [History] Levothyroxine Sodium [Levoxyl] 50 mcg PO DAILY 02/27/17 [History] Methotrexate 4 tab PO WEEKLY 02/27/17 [History] Multivitamin [Multivitamins] 1 tab PO DAILY 02/27/17 [History] Ondansetron [Zofran] 4 mg PO QID PRN 02/27/17 [History] traZODone HCl [Trazodone HCl] 100 mg PO BEDTIME PRN 02/27/17 [History] Hydrocodone/Acetaminophen [Hydrocodon-Acetaminophn 10-325] 10 - 325 mg PO BID PRN 03/29/19 [History] fentaNYL [Fentanyl] 75 mcg TOP Q72H 04/02/19 [History] Past Medical History Gastrointestinal History: Reports: GERD Musculoskeletal History: Reports: Osteoarthritis, RA, Other (See Below) Other Musculoskeletal History: osteopenia Psychiatric History: Reports: Addiction, Depression Endocrine/Metabolic History: Reports: Hypothyroidism, Vitamin D Deficiency Immunologic History: Reports: Immunosuppression Dermatologic History: Reports: Other (See Below) Other Dermatologic History: psriatic arthropathy Social & Family History - Tobacco Use Smoking Status *Q: Current Every Day Smoker Years of Tobacco use: 30 Packs/Tins Daily: 0.7 - Caffeine Use Caffeine Use: Reports: Coffee, Soda - Recreational Drug Use Recreational Drug Use: No Other Recreational Drug Type: pain meds ED ROS GENERAL - Review of Systems Review Of Systems: See Below Constitutional: Reports: No Symptoms Respiratory: Reports: No Symptoms Cardiovascular: Reports: No Symptoms GI/Abdominal: Reports: No Symptoms : Reports: No Symptoms ED EXAM, GENERAL - Physical Exam Exam: See Below Exam Limited By: No Limitations General Appearance: Alert, No Apparent Distress Head: Atraumatic, Normocephalic Neck: Normal Inspection, Supple, Non-Tender, Full Range of Motion Respiratory/Chest: No Respiratory Distress, Lungs Clear, Normal Breath Sounds Cardiovascular: Normal Peripheral Pulses, Regular Rate, Rhythm, No Edema Course - Vital Signs Last Recorded V/S: Last Vital Signs Temp 36.8 C 04/02/19 13:52 Pulse 89 04/02/19 16:15 Resp 18 04/02/19 16:15 BP 122/84 04/02/19 16:15 Pulse Ox 95 04/02/19 16:15 - Orders/Labs/Meds Meds: Medications Discontinued Medications Generic Name Dose Route Start Last Admin Trade Name Cecile PRN Reason Stop Dose Admin Fentanyl 75 mcg 04/02/19 15:01 04/02/19 15:20 Duragesic TRDERM 04/02/19 15:02 75 mcg ONETIME ONE Administration Ketorolac Tromethamine 30 mg 04/02/19 15:00 04/02/19 15:22 Toradol IM 04/02/19 15:01 30 mg ONETIME ONE Administration - Re-Assessments/Exams Free Text/Narrative Re-Assessment/Exam: 04/02/19 16:39 We applied a fentanyl patch 75 g and gave her some Toradol she is doing better at this time. We will discharge home. I discussed with her the fentanyl patch doesn't immediately work but takes several hours. I will not give her prescriptions as the pharmacy will not fill them. She really needs to follow-up with her regular pain doctor who is on vacation at this point. Departure - Departure Time of Disposition: 16:40 Disposition: Eloped 07 Clinical Impression: Chronic pain - Discharge Information Instructions: Chronic Pain, Adult Referrals: Liz,Girma M, MD [Primary Care Provider] - Forms: ED Department Discharge Additional Instructions: Return to the emergency room with any questions problems worsening symptoms. However we cannot really refill your chronic pain medication as they need to go to your pain doctor or perhaps your primary regular physician.
[2019-04-02] MEDS ORDERED: Ketorolac 30 MG/ML SDV IM ONE (15:00)
[2019-04-02] MEDS ORDERED: fentaNYL 75 MCG/HR Transdermal Patch TRDERM ONE (15:01)
[2019-04-02 17:10] VITALS: BP 122/84
== END 2019-04-02 16:40 | disposition left against medical advice (07) ==
LOC: JD.ED 13:33
DX: G89.29 Other chronic pain (principal); M54.9 Dorsalgia, unspecified; E03.9 Hypothyroidism, unspecified; F17.210 Nicotine dependence, cigarettes, uncomplicated; Z79.899 Other long term (current) drug therapy
CPT/HCPCS: 96372; 99282; A9270; J1885

== ENCOUNTER 2019-04-29 09:05 | Emergency (ER) | payer OTHER, MEDICARE ==
[2019-04-29 09:37] VITALS: BP 155/98; PULSE 66
[2019-04-29] MEDS ORDERED: fentaNYL 75 MCG/HR Transdermal Patch TRDERM ONE (09:38)
[2019-04-29] MEDS ORDERED: Ketorolac 60 MG/2 ML SDV IM ONE (09:42)
--- NOTE | 2019-04-29 09:45 | EDM.PDOC ---
ED HPI GENERAL MEDICAL PROBLEM - General Chief Complaint: General Stated Complaint: FEVER/CHILLS Time Seen by Provider: 04/29/19 09:23 Source of Information: Reports: Patient History Limitations: Reports: No Limitations - History of Present Illness INITIAL COMMENTS - FREE TEXT/NARRATIVE: The patient presents with chills and back pain. She has a history of arthritis and she is on a fentanyl patch 75mcg. Her is a front load trash truck driver and left yesterday and he patches are in his truck. She is having nausea, cramping and pain. She feels like she is withdrawing. Onset: Gradual Duration: Day(s): Location: Reports: Generalized Quality: Reports: Other (Cramping) Severity: Severe Improves with: Reports: None Worsens with: Reports: None Associated Symptoms: Reports: Fever/Chills, Nausea/Vomiting. Denies: Chest Pain , Cough, Headaches, Shortness of Breath Generalized Pain Score (Numeric/FACES): 8 - Related Data Allergies Allergy/AdvReac Type Severity Reaction Status Date / Time No Known Allergies Allergy Verified 04/29/19 09:31 Home Meds: Home Meds Calcium Citrate 200 mg PO TID 02/27/17 [History] Ergocalciferol (Vitamin D2) [Vitamin D2] 1 tab PO WEEKLY 02/27/17 [History] Folic Acid 1 tab PO DAILY 02/27/17 [History] Gabapentin [Neurontin] 300 mg PO QID 02/27/17 [History] Levothyroxine Sodium [Levoxyl] 50 mcg PO DAILY 02/27/17 [History] Methotrexate 4 tab PO WEEKLY 02/27/17 [History] Multivitamin [Multivitamins] 1 tab PO DAILY 02/27/17 [History] Ondansetron [Zofran] 4 mg PO QID PRN 02/27/17 [History] traZODone HCl [Trazodone HCl] 100 mg PO BEDTIME PRN 02/27/17 [History] Hydrocodone/Acetaminophen [Hydrocodon-Acetaminophn 10-325] 10 - 325 mg PO BID PRN 03/29/19 [History] fentaNYL [Fentanyl] 75 mcg TOP Q72H 04/02/19 [History] Past Medical History Gastrointestinal History: Reports: GERD CLINICAL REHABILITATION SPECIALIST History: Reports: Musculoskeletal History: Reports: Osteoarthritis, RA, Other (See Below) Other Musculoskeletal History: osteopenia Psychiatric History: Reports: Addiction, Depression Endocrine/Metabolic History: Reports: Hypothyroidism, Vitamin D Deficiency Immunologic History: Reports: Immunosuppression Dermatologic History: Reports: Other (See Below) Other Dermatologic History: psriatic arthropathy - Past Surgical History GI Surgical History: Reports: Cholecystectomy Social & Family History - Tobacco Use Smoking Status *Q: Current Every Day Smoker Years of Tobacco use: 30 Packs/Tins Daily: 1 - Caffeine Use Caffeine Use: Reports: None - Recreational Drug Use Recreational Drug Use: No ED ROS GENERAL - Review of Systems Review Of Systems: See Below Constitutional: Reports: No Symptoms HEENT: Reports: No Symptoms Respiratory: Reports: No Symptoms Cardiovascular: Reports: No Symptoms Endocrine: Reports: No Symptoms GI/Abdominal: Reports: No Symptoms : Reports: No Symptoms Musculoskeletal: Reports: Back Pain, Muscle Stiffness Skin: Reports: No Symptoms Neurological: Reports: No Symptoms ED EXAM, GENERAL - Physical Exam Exam: See Below Exam Limited By: No Limitations General Appearance: Alert, No Apparent Distress Ears: Normal External Exam Nose: Normal Inspection Head: Atraumatic, Normocephalic Neck: Normal Inspection Respiratory/Chest: No Respiratory Distress, Lungs Clear, Normal Breath Sounds Cardiovascular: Regular Rate, Rhythm, No Edema, No Murmur GI/Abdominal: Soft, Non-Tender, No Organomegaly, No Mass Back Exam: Vertebral Tenderness Extremities: Normal Inspection Course - Vital Signs Last Recorded V/S: Last Vital Signs Temp 98.1 F 04/29/19 09:33 Pulse 66 04/29/19 09:33 Resp 12 04/29/19 09:33 BP 155/98 H 04/29/19 09:33 Pulse Ox 100 04/29/19 09:33 - Orders/Labs/Meds Meds: Medications Discontinued Medications Generic Name Dose Route Start Last Admin Trade Name Freq PRN Reason Stop Dose Admin Fentanyl 75 mcg 04/29/19 09:38 Duragesic TRDERM 04/29/19 09:39 ONETIME ONE - Re-Assessments/Exams Free Text/Narrative Re-Assessment/Exam: 04/29/19 09:45 I ordered fentanyl 75mcg transdermal and a shot of toradol 60mg IM. Departure - Departure Time of Disposition: 09:45 Disposition: Home, Self-Care 01 Condition: Good Clinical Impression: Opioid use with withdrawal Chronic pain Qualifiers: Chronic pain type: chronic pain syndrome Qualified Code(s): G89.4 - Chronic pain syndrome - Discharge Information *PRESCRIPTION DRUG MONITORING PROGRAM REVIEWED*: No *COPY OF PRESCRIPTION DRUG MONITORING REPORT IN PATIENT DONNIE: No Referrals: Girma Hill MD [Primary Care Provider] - Additional Instructions: Follow up with your doctor as needed. Please return if you are worse.
== END 2019-04-29 10:15 | disposition home or self-care (01) ==
LOC: JD.ED 09:05
DX: F11.93 Opioid use, unspecified with withdrawal (principal); G89.4 Chronic pain syndrome; E03.9 Hypothyroidism, unspecified; M06.9 Rheumatoid arthritis, unspecified; F32.9 Major depressive disorder, single episode, unspecified; F17.210 Nicotine dependence, cigarettes, uncomplicated; Z79.899 Other long term (current) drug therapy; Z79.890 Hormone replacement therapy
CPT/HCPCS: 96372; 99283; A9270; J1885

== ENCOUNTER 2019-05-01 12:04 | Emergency (ER) | payer OTHER, MEDICARE ==
[2019-05-01 12:17] VITALS: BP 121/83; PULSE 95
[2019-05-01] MEDS ORDERED: FLU Vacc QS2019-20(6MOS+)/PF 60 MCG/0.5 ML SYRINGE IM ONE (12:30)
[2019-05-01] MEDS ORDERED: Ketorolac 60 MG/2 ML SDV IM ONE (12:51)
[2019-05-01] MEDS ORDERED: fentaNYL 75 MCG/HR Transdermal Patch TRDERM ONE (12:52)
--- NOTE | 2019-05-01 12:57 | EDM.PDOC ---
ED HPI GENERAL MEDICAL PROBLEM - General Chief Complaint: Back Pain or Injury Stated Complaint: PAIN Time Seen by Provider: 05/01/19 12:40 Source of Information: Reports: Patient History Limitations: Reports: No Limitations - History of Present Illness INITIAL COMMENTS - FREE TEXT/NARRATIVE: 53-year-old female presents to the ED with chronic pain syndrome. She's been on fentanyl patch 70 my 5 g per hour for the last 10 years. She states her has her patches and he is in his truck in in [place]. She's been without medication for 24 hours and starting to go through early withdrawal symptoms. Personal doctor who will not refill her patches. She states she'll be back in 2 days time and therefore she really only needs one patch to get through her symptoms. Onset: Gradual (Over the last 24 hours starting to feel withdrawal and increased pain.) Onset Date: 04/30/19 Duration: Hour(s):, Getting Worse Location: Reports: Generalized, Other Quality: Reports: Other (Nausea nausea and tremor) Severity: Moderate Improves with: Reports: None Worsens with: Reports: None Context: Reports: Other (Acute opiate withdrawal.). Denies: Activity, Exercise , Lifting, Sick Contact, Trauma Associated Symptoms: Reports: Loss of Appetite, Malaise, Nausea/Vomiting, Other (No diarrhea). Denies: Confusion, Chest Pain, Cough, cough w sputum, Diaphoresis, Fever/Chills, Headaches, Rash, Seizure (Nausea without vomiting), Shortness of Breath, Syncope Treatments COMMUNICATIONS DESIGNER: Reports: Other (see below) (None.) Hip Pain Score (Numeric/FACES): 9 - Related Data Allergies Allergy/AdvReac Type Severity Reaction Status Date / Time No Known Allergies Allergy Verified 04/29/19 09:31 Home Meds: Home Meds Calcium Citrate 200 mg PO TID 02/27/17 [History] Ergocalciferol (Vitamin D2) [Vitamin D2] 1 tab PO WEEKLY 02/27/17 [History] Folic Acid 1 tab PO DAILY 02/27/17 [History] Gabapentin [Neurontin] 300 mg PO QID 02/27/17 [History] Levothyroxine Sodium [Levoxyl] 50 mcg PO DAILY 02/27/17 [History] Methotrexate 4 tab PO WEEKLY 02/27/17 [History] Multivitamin [Multivitamins] 1 tab PO DAILY 02/27/17 [History] Ondansetron [Zofran] 4 mg PO QID PRN 02/27/17 [History] traZODone HCl [Trazodone HCl] 100 mg PO BEDTIME PRN 02/27/17 [History] Hydrocodone/Acetaminophen [Hydrocodon-Acetaminophn 10-325] 10 - 325 mg PO BID PRN 03/29/19 [History] fentaNYL [Fentanyl] 75 mcg TOP Q72H 04/02/19 [History] Past Medical History Gastrointestinal History: Reports: 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: Musculoskeletal History: Reports: Osteoarthritis, RA, Other (See Below) Other Musculoskeletal History: osteopenia Psychiatric History: Reports: Addiction, Depression Endocrine/Metabolic History: Reports: Hypothyroidism, Vitamin D Deficiency Immunologic History: Reports: Immunosuppression Dermatologic History: Reports: Other (See Below) Other Dermatologic History: psriatic arthropathy - Past Surgical History GI Surgical History: Reports: Cholecystectomy Social & Family History - Tobacco Use Smoking Status *Q: Current Every Day Smoker Years of Tobacco use: 30 Packs/Tins Daily: 1 - Caffeine Use Caffeine Use: Reports: Coffee, Soda - Recreational Drug Use Recreational Drug Use: No - Living Situation & Occupation Living situation: Reports: Occupation: Unemployed ED ROS GENERAL - Review of Systems Review Of Systems: See Below Constitutional: Reports: Chills, Malaise, Weakness, Fatigue, Decreased Appetite. Denies: Fever HEENT: Reports: Glasses Respiratory: Reports: No Symptoms Cardiovascular: Reports: No Symptoms Endocrine: Reports: Fatigue GI/Abdominal: Reports: Constipation, Nausea : Reports: No Symptoms (Usually borderline constipation.) Musculoskeletal: Reports: Back Pain, Other (Generalized pain syndrome labeled as fibromyalgia with chronic low back pain.) Skin: Reports: No Symptoms Neurological: Reports: Dizziness, Numbness, Tingling, Tremors, Weakness. Denies : Confusion Psychiatric: Reports: Agitation, Anxiety Hematologic/Lymphatic: Reports: No Symptoms Immunologic: Reports: No Symptoms ED EXAM,LOWER BACK PAIN/INJURY - Physical Exam Exam: See Below Exam Limited By: No Limitations General Appearance: Alert, WD/WN, Moderate Distress, Other (Anxious and tearful. ) Eye Exam: Bilateral Eye: Normal Inspection, PERRL Throat/Mouth: Normal Inspection, Normal Oropharynx, Other Head: Atraumatic (Lips are dry. Tongue is mildly dry and coated as well.), Normocephalic Neck: Normal Inspection, Supple, Non-Tender, Limited Range of Motion, Other ( She has neck pain. Continue with flexion and extension and lateral rotation.). No: Lymphadenopathy (L), Lymphadenopathy (R), Tender Lateral Respiratory/Chest: Lungs Clear, Normal Breath Sounds (Mildly tachypnea.), No Accessory Muscle Use, Chest Non-Tender, Respiratory Distress Cardiovascular: Regular Rate, Rhythm, No Edema, No Gallop Back Exam: Decreased Range of Motion, Paraspinal Tenderness, Vertebral Tenderness (Throughout the entire lumbar spine.). No: CVA Tenderness (L), CVA Tenderness (R) Extremities: Normal Inspection, Normal Range of Motion, Non-Tender, Other (Mild tremor.) Neurological: Alert, Normal Dorsiflexion, CN II-XII Intact, No Motor/Sensory Deficits, Oriented x 3 Psychiatric: Anxious, Tearful Skin Exam: Warm, Dry, Intact, Normal Color, No Rash Course - Vital Signs Last Recorded V/S: Last Vital Signs Temp 37.5 C 05/01/19 12:16 Pulse 95 05/01/19 12:16 Resp 20 05/01/19 12:16 BP 121/83 05/01/19 12:16 Pulse Ox 94 L 05/01/19 12:16 - Orders/Labs/Meds Orders: Active Orders 24 hr Category Date Time Status Influenza Vaccine Charge [RC] .DISCHARGE Care 05/01/19 12:26 Active Meds: Medications Discontinued Medications Generic Name Dose Route Start Last Admin Trade Name Freq PRN Reason Stop Dose Admin Fentanyl 75 mcg 05/01/19 12:52 05/01/19 13:10 Duragesic TRDERM 05/01/19 12:53 75 mcg ONETIME ONE Administration Influenza Virus Vaccine 1 each 05/01/19 12:26 Pharmacy To Dose - Influenza Vaccine IM 05/01/19 12:27 ONETIME ONE Influenza Virus Vaccine 60 mcg 05/01/19 12:30 05/01/19 13:17 Fluzone Quad [id number] Syringe IM 05/01/19 12:31 60 mcg .ONCE ONE Administration Ketorolac Tromethamine 60 mg 05/01/19 12:51 05/01/19 13:12 Toradol IM 05/01/19 12:52 60 mg ONETIME ONE Administration - Radiology Interpretation Free Text/Narrative:: 53-year-old female presents to the ED looking for a fentanyl 75 g per hour patch. She states she's been on these patches every 72 hours for the last 10 years for chronic pain management. Her has her Duragesic patch with him and he is in a semitruck in [place]. They have been traveling on the road together and she accidentally left her patches in the truck. She therefore has been without medication for 24 hours and started to show signs of early opiate withdrawal. Nauseated shaky tremulous. So increased pain in her back and neck. He will be back within 2 days and therefore she really only needs one patch to get her through this problematic time. I will give her Toradol 60 mg IM and will give her fentanyl a 5 g patch from the ED. She will be following up with her personal care physician as planned. Departure - Departure Time of Disposition: 12:53 Disposition: Home, Self-Care 01 Condition: Fair Clinical Impression: Chronic pain syndrome, Acute narcotic withdrawal without complication, Fentanyl dependence Chronic pain Qualifiers: Chronic pain type: chronic pain syndrome Qualified Code(s): G89.4 - Chronic pain syndrome - Discharge Information *PRESCRIPTION DRUG MONITORING PROGRAM REVIEWED*: Not Applicable *COPY OF PRESCRIPTION DRUG MONITORING REPORT IN PATIENT DONNIE: Not Applicable Instructions: Chronic Pain, Adult Referrals: Girma Hill MD [Primary Care Provider] - Forms: ED Department Discharge Additional Instructions: Evaluation the emergency room today in regards to chronic pain syndrome controlled with fentanyl 75 g patches every 72 hours for the last 10 years for pain management. Unfortunately your fentanyl patches were left in the vehicle with your her whom left for for [place] 2 days ago. By history you have have been without any pain medication the last 24 hours and is starting to show signs of early narcotic withdrawal. You're given Toradol 60 mg intramuscularly for acute pain relief and a new fentanyl 75 g patch will be applied in the ED. is supposed to be back in 2 days and Cipro one patch should suffice to be 2 through until he returns. - My Orders Last 24 Hours: My Active Orders 05/01/19 12:26 Influenza Vaccine Charge [RC] .DISCHARGE - Assessment/Plan Last 24 Hours: My Active Orders 05/01/19 12:26 Influenza Vaccine Charge [RC] .DISCHARGE
== END 2019-05-01 13:20 | disposition home or self-care (01) ==
LOC: JD.ED 12:04
DX: G89.4 Chronic pain syndrome (principal); F11.23 Opioid dependence with withdrawal; E03.9 Hypothyroidism, unspecified; F32.9 Major depressive disorder, single episode, unspecified; F17.200 Nicotine dependence, unspecified, uncomplicated; Z79.890 Hormone replacement therapy; Z79.899 Other long term (current) drug therapy
CPT/HCPCS: 90471; 90686; 96372; 99282; A9270; J1885; 99284; G0008